=== PATIENT | male | born 1980 | race African-American/Black ===

== ENCOUNTER 2017-07-05 01:46 | Emergency (ER) | payer OTHER ==
[~2017-07-05] VITALS: Ht 170.2 cm; Wt 87.5 kg
== END 2017-07-05 04:19 | disposition home or self-care (01) ==
LOC: CED 01:46
DX: L02.214 Cutaneous abscess of groin (principal); F17.210 Nicotine dependence, cigarettes, uncomplicated
CPT/HCPCS: 10060; 99283